=== PATIENT | male | born 1970 | race Hispanic/Latino ===

== ENCOUNTER 2022-04-22 06:46 | Emergency (ER) | payer OTHER ==
[~2022-04-22] VITALS: Ht 172.7 cm; Wt 94.4 kg
[2022-04-22 06:49] VITALS: BP 134/82
[2022-04-22] MEDS ORDERED: MEDR4PAK PO (09:33)
== END 2022-04-22 10:02 | disposition home or self-care (01) ==
LOC: EDBD 06:46 → M ED 06:46
DX: M54.31 Sciatica, right side (principal)

== ENCOUNTER → 2023-11-20 | Outpatient (REF) ==
[~2023-11-20] MED LIST: MEDR4PAK PO
== END ==
LOC: M PLAIMG 08:45
PROVIDERS: ATTEND Internal Medicine
DX: R52 Pain, unspecified (principal); M47.9 Spondylosis, unspecified

== ENCOUNTER 2023-12-12 19:21 | Emergency (ER) | payer OTHER ==
[~2023-12-12] VITALS: Ht 172.7 cm; Wt 99.0 kg
[2023-12-12 19:55] LABS: BASO # 0.1 10^3/uL (0.0-0.2); BASO % 0.6 % (0.0-1.0); EOS # 0.2 10^3/uL (0.0-0.5); EOS % 2.2 % (0.0-3.0); HEMATOCRIT 44.6 % (42.0-52.0); HEMOGLOBIN 15.6 g/dl (13.5-17.5); LYMPH # 3.9 10^3/uL (1.5-5.0); MEAN CORPUSCULAR HEMOGLOBIN 30.6 pg (27.0-33.0); MEAN CORPUSCULAR VOLUME 87.6 fl (80.0-96.0); MONO # 0.9 10^3/uL (0.0-0.8); MONO % 8.9 % (2.0-8.0); NEUTROPHILS # 4.9 10^3/uL (1.5-8.5); NEUTROPHILS % 48.8 % (36.0-66.0); PLATELET COUNT, AUTOMATED 166 10^3/uL (150-450); RED BLOOD COUNT 5.09 10^6/uL (4.30-6.10); WHITE BLOOD COUNT 10.1 10^3/uL (4.0-10.0)
[2023-12-12] MEDS: KETOROLAC 30 MG/ML 1ML VIAL IV ONE (20:17)
[2023-12-12] MEDS: ONDANSETRON 4MG 2ML VIAL IV ONE (20:18)
[2023-12-12 20:25] LABS: ALBUMIN 3.8 G/DL (3.2-5.2); BILIRUBIN,DIRECT 0.1 MG/DL (<0.4); BILIRUBIN,TOTAL 0.4 MG/DL (0.3-1.2); TOTAL PROTEIN 7.2 G/DL (5.7-8.2)
[2023-12-12] MEDS: MORPHINE 4 MG/ML 1ML VIAL IV ONE (20:41)
[2023-12-12] MEDS ORDERED: IBUP-1022 PO (23:00)
[2023-12-12] MEDS ORDERED: HYDR-3713 PO (23:00)
[2023-12-12] MEDS ORDERED: FLOM0.4C39 PO (23:00)
[2023-12-12] MEDS ORDERED: ONDA-282 PO (23:00)
[2023-12-12 23:06] VITALS: BP 121/60; TEMP 98.3; O2SAT 97
[2023-12-12] MEDS: TAMSULOSIN 0.4 MG CAP PO ONE (23:17)
[2023-12-12] MEDS: NORCO 5/325MG TABLET (HOME DOSE PACK) PO ONE (23:18)
== END 2023-12-12 23:30 | disposition home or self-care (01) ==
LOC: M ED 19:21
DX: N20.1 Calculus of ureter (principal); Z87.442 Personal history of urinary calculi; Z79.899 Other long term (current) drug therapy
CPT/HCPCS: 74176; 80047; 80076; 81001; 83690; 85025; 96374; 96375; 99284; J1885; J2405